=== PATIENT | female | born 2000 | race Caucasian/White ===

== ENCOUNTER 2023-01-13 06:51 | Observation (INO) | payer MEDICAID ==
[~2023-01-13] VITALS: Ht 157.5 cm; Wt 73.9 kg
[2023-01-13] MEDS ORDERED: PNV1TABL76 PO (07:27)
[2023-01-13 08:35] LABS: CLARITY URINE CLOUDY (CLEAR); COLOR URINE YELLOW (YELLOW); GLUCOSE URINE NEGATIVE (NEGATIVE); KETONES URINE NEGATIVE (NEGATIVE); LEUKOCYTE ESTERASE URINE 1+ (NEGATIVE); NITRITE URINE NEGATIVE (NEGATIVE); OCCULT BLOOD URINE 2+ (NEGATIVE); PH URINE 6.5 (4.5-8.0); PROTEIN URINE NEGATIVE (NEGATIVE)
[2023-01-13 08:38] LABS: BACTERIA URINE 1+; SQUAMOUS EPITHELIAL CELL URINE 1+ /lpf (RARE/1+); YEAST URINE NONE SEEN
[2023-01-13 09:11] LABS: CALCIUM OXALATE CRYSTALS URINE 1+ /lpf; MUCUS URINE 2+ /lpf (< = 2+); RBC URINE 0-2 /hpf (0-2)
== END 2023-01-13 14:00 | disposition left against medical advice (07) ==
LOC: 8 EST LDRP 06:51
PROVIDERS: ADMIT Obstetrics & Gynecology; ATTEND Obstetrics & Gynecology
DX: O46.92 Antepartum hemorrhage, unspecified, second trimester (principal); O60.02 Preterm labor without delivery, second trimester; Z3A.22 22 weeks gestation of pregnancy
CPT/HCPCS: 59025; 76805; 81003; 99281; G0378